=== PATIENT | female | born 1940 | race Caucasian/White ===

== ENCOUNTER 2024-09-10 05:07 | Emergency (ER) | payer MEDICARE, BC, SELFPAY ==
[2024-09-10] VITALS (12 sets, daily range): BP systolic 118–175; BP diastolic 57–99; PULSE 88–124; RESP 18–31; TEMP 36.6–36.9; O2SAT 87–100; BMI 33.9
--- NOTE | 2024-09-10 05:30 | PD.EDRME ---
Rapid Medical Screening Exam RME Arrival date/time: 09/10/24 05:07 Chief Complaint: GI Bleed Time Seen by Provider: 09/10/24 05:30 RME Narrative: 84yo female BIBA from [facility] presents to the ED for complaints of abdominal pain and dark red stools. Patient has a history of aFib and is on Eliquis.
--- NOTE | 2024-09-10 05:31 | EKG_ITS ---
[facility] Test Date: 2024-09-10 Pat Name: LOIS CHRISTENSEN Department: Room: - Gender: Female Director Of Consumer Marketing: : 1940 Requested By: Jarrett Hoffman Order Number: [id number] Reading MD: Jarrett Hoffman Measurements Intervals Dutton Rate: 112 P: UT: QRS: 15 QRSD: 72 T: 87 QT: 303 QTc: 415 Interpretive Statements ATRIAL FIBRILLATION WITH RAPID VENTRICULAR RESPONSE POSSIBLE ANTERIOR MYOCARDIAL INFARCTION , OF INDETERMINATE AGE [30 ms Q WAVE IN V3/V4, OR R < 0.2 mV IN V4] No previous ECG available for comparison /[id number]/S0/[id number].pdf
--- NOTE | 2024-09-10 05:33 | XR_ITS ---
Examination: CT abdomen with intravenous contrast CT pelvis with intravenous contrast 2-D coronal reconstructions 2-D sagittal reconstructions Date and time of exam:September 10, 2024 at 0856 hours INDICATIONS: Generalized abdominal pain and distention today. CTDI: vol (mGy) 19.3 DLP: (mGycm) 1006 Technique: Multiple axial sections of the abdomen and pelvis have been obtained. 64 slice high-resolution scanner used. 3 mm axial sections have been obtained, post intravenous injection 60 cc Isovue-370 2-D sagittal, coronal reconstructions obtained. Low dose protocols were performed. One or more of the following dose reduction techniques were used; automated exposure control, adjustment of the mA and/or KV according to patient size, use of iterative reconstruction technique. Findings: Atelectasis versus pneumonia both lung bases Small bilateral pleural effusions Prominent intrahepatic biliary tract dilatation Absent gallbladder Abnormally enlarged common bile duct 18 mm Spleen is not enlarged Atrophic pancreas No hydronephrosis Heavy abdominal aortic calcification Multiple fluid distended small bowel loops Hernia defect left lateral abdomen, at least 4.5 cm containing dilated small bowel loops Central lower pelvic wall hernia defect, 7.7 cm containing colon and small bowel Contracted urinary bladder around a Escalante catheter Severe osteopenia IMPRESSION: Atelectasis versus pneumonia both bases Abnormal extra hepatic biliary tract dilatation, consider MRCP follow-up to exclude malignant stricture at the ampulla Small bowel obstruction pattern, likely secondary to incarcerated small bowel in a left lateral abdomen hernia defect
--- NOTE | 2024-09-10 05:35 | XR_ITS ---
Examination: AP chest single view Technique one AP portable upright chest single view Exam date and time: September 10, 2024 0559 hours INDICATIONS: Chest abdominal pain today FINDINGS: Suspicious for retrocardiac gastric hernia No significant cardiac enlargement No pulmonary edema Prominent osteopenia IMPRESSION: Recommend lateral chest view follow-up to confirm retrocardiac gastric hernia
[2024-09-10] MEDS: HYDROmorphone INJ 2 MG/ML VIAL 1 MG IVP (06:24)
[2024-09-10 06:25] LABS: Basophils # (Auto) 0.1 Thou/mm3 (0.0-0.2); Basophils % (Auto) 0 % (0-2.5); Eosinophils % (Auto) 0 % (0-10); Hemoglobin 14.6 g/dL (12.0-16.0); Lymphocytes # (Auto) 1.4 Thou/mm3 (1.0-4.8); Lymphocytes % (Auto) 5 % (10-50); Mean Corpuscular Volume 100 fL (80-100); Monocytes # (Auto) 0.9 Thou/mm3 (0.0-0.8); Monocytes % (Auto) 3 % (0-12); Neutrophils % (Auto) 91 % (37-80); Nucleated Red Blood Cell % 0 /100 WBC (0)
[2024-09-10] MEDS: PANTOPRAZOLE INJ 40 MG VIAL 80 MG IVP (06:25)
[2024-09-10] MEDS: ONDANSETRON INJ 2 MG/ML INJ 2 ML 4 MG IV (06:25)
[2024-09-10 06:27] LABS: Hematocrit 44.3 % (36.0-46.0); Immature Granulocytes % (Auto) 1 % (0-0); Immature Granulocytes Auto 0.38 Thou/mm3 (0.00-0.00); Mean Corpuscular Hemoglobin 32.9 pg (25.0-35.0); Neutrophils # (Auto) 27.1 Thou/mm3 (1.8-7.7); Nucleated Red Blood Cell # 0.02 Thou/mm3 (0.00-0.00); Platelet Count 404 Thou/mm3 (140-440); Red Blood Count 4.44 Miln/mm3 (4.00-5.20); White Blood Count 29.9 Thou/mm3 (3.6-11.0)
[2024-09-10] MEDS: SODIUM CHLORIDE 0.9% 1000 ML 1,000 ML 999 ML IV ×2 (06:34→11:59)
[2024-09-10 06:59] LABS: Alanine Aminotransferase 206 U/L (10-49); Albumin, Serum 3.8 gm/dL (3.4-4.8); Albumin/Globulin Ratio 1.5 (1.2-2.2); Alkaline Phosphatase 208 U/L (46-116); Anion Gap 9 (7-16); Aspartate Amino Transferase 498 U/L (0-34); BUN/Creatinine Ratio 23 Ratio (12-20); Bilirubin,Total 1.2 mg/dL (0.3-1.2); Blood Urea Nitrogen 18 mg/dL (9-23); Calcium 9.5 mg/dL (8.3-10.6); Calcium (Corrected) 9.7 mg/dL (8.5-10.1); Carbon Dioxide 27.3 mMol/L (20.0-31.0); Chloride 101 mMol/L (98-107); Creatinine (Component) 0.8 mg/dL (0.6-1.3); Estimated Creatinine Clearance 59.8 mL/min (>60); Globulin 2.6 gm/dL (2.3-3.5); Glucose 160 mg/dL (74-106); Lipase 35 U/L (12-53); Magnesium 2.6 mg/dL (1.6-2.6); Osmolality,Calculated 278 (275-295); Potassium 5.1 mMol/L (3.4-5.1); Procalcitonin 0.12 ng/ml (0.0-0.49); Sodium 137 mMol/L (136-145); Total Protein 6.4 gm/dL (5.7-8.2); eGFR > 60 See Note
--- NOTE | 2024-09-10 07:12 | XR_ITS ---
Examination: Abdomen sonogram, Limited Date and time of exam: September 10, 2024 0728 hrs. Indications: Onset right upper abdominal pain today Technique: Real-time jones scale transabdominal sonographic images of the upper abdomen obtained. Findings: Gallbladder not visualized Marked abnormal enlargement common bile duct 1.7 cm Pancreatic head 2.8 cm Liver 14.2 cm smooth contour no focal liver lesions Normal hepatopedal portal venous flow Patent IVC Impression: Markedly abnormally enlarged common bile duct, 17 mm consistent, consider MRCP follow-up to exclude malignant stricture distal common bile duct
[2024-09-10 07:17] LABS: Lactate (Lactic Acid) 1.7 mMol/L (0.4-2.0)
--- NOTE | 2024-09-10 07:38 | PC.NURSE ---
Per previous nurse, pt came with patent gallardo, so she did not think she needed to place a new one. Fluids infusing currently, gallardo clamped to obtain urine sample. Pt slightly tachy on tele, US at bedside. Denies any pain or discomfort at this time. Will continue w/POC.
--- NOTE | 2024-09-10 08:13 | PC.NURSE ---
went to collect urine from catheter, changed pt as dark blood was noted in brief, turned pt to get temp as well as COPS was unable to obtain a temp orally or axillary. Blood was reported to provider. This RN also noted that a blister was forming to left upper thigh from catheter, bandage placed to prevent further irritation. Daughter now at bedside.
[2024-09-10 08:25] LABS: Collection Type, Urine Catheter; Squamous Epithelial Cell,Urine 0 /hpf (0-5)
[2024-09-10 08:27] LABS: INR 1.3 (0.9-1.3); Partial Thromboplastin Time 28.2 Seconds (22.0-36.0); Prothrombin Time 13.6 Seconds (9.0-12.2)
[2024-09-10 08:50] LABS: Hyaline Casts,Urine 12 /hpf (0-1); RBC,Urine 1236 /hpf (0-3); WBC,Urine 24 /hpf (0-5)
[2024-09-10 09:03] LABS: Bilirubin,Urine 1+ (Negative); Blood,Urine 3+ (Negative); Color,Urine Orange (Lt Yel-Yel); Glucose, Urine Negative (Negative); Ketones,Urine Trace (Negative); Leukocyte Esterase,Urine Positive (Negative); Nitrite,Urine Negative (Negative); PH,Urine 5.5 (5.0-7.0); Protein,Urine 2+ (Neg - Trace); Urobilinogen,Urine Negative mg/dL (0.0-1.0)
[2024-09-10 09:06] LABS: Clarity,Urine Turbid (Clear/Hazy)
--- NOTE | 2024-09-10 10:15 | EDNOTE_ITS ---
ED Abdominal Pain RME/HPI General Chief Complaint: GI Bleed Stated complaint: GI BLEED Time seen by provider: 09/10/24 05:30 Arrival date/time: 09/10/24 05:07 RME / HPI RME / HPI narrative: 84yo female CHARLEE from [facility] presents to the ED for complaints of abdominal pain and dark red stools. Patient has a history of aFib and is on Eliquis. DR. HENLEY MAIN ED EVALUATION 84 year old female with history of AFib on Eliquis, hypertension, hyperlipidemia, CATHY, GERD presents to the ED BIBA from [facility] for evaluation of abdominal pain today. Per medics, [place] staff reported blood in stool. While in the ED, patient does not know how long she has had blood in stool. Patient additionally complains of worsening abdominal pain. States she has had abdominal pain for several months and is unable to specify when it began worsening. Denies fevers, chills, chest pain, cough, vomiting. Related Data Allergies Allergy/AdvReac Type Severity Reaction Status Date / Time hydrochlorothiazide Allergy Verified 09/10/24 05:35 Sulfa (Sulfonamide Allergy Verified 09/10/24 05:35 Antibiotics) Review of Systems Review of Systems Narrative Review of Systems: Gen: No fever, no chills, no weight loss EYES: No discharge, no visual changes, no pain HEENT: No ear pain, no congestion, no sore throat PULM: no shortness of breath, no cough, no congestion CV: No chest pain, no dyspnea on exertion, no palpitations, no chest tightness GI: No nausea, no vomiting, no diarrhea, + pain, +blood in stool per NH staff, no constipation : No frequency, no urgency,? no dysuria Musc/skel: No joint pain, no back pain Skin: No rash, no ecchymosis, no lesions Neuro: No weakness, no headache Past Medical History Past Medical History CARDIAC: Positive Cardiac Disorders RESPIRATORY: Negative Asthma GENITOURINARY: Negative Renal Disease ENDOCRINE: Negative Diabetes Mellitus Type 2 HEMATOLOGIC: Negative Sickle Cell Disease Social History SMOKING STATUS: Former smoker ED Exam Narrative Physical exam: GENERAL APPEARANCE: Awake, no obvious distress, nontoxic appearing HEENT: NC, AT. MMM. EOMI, clear conjunctiva, oropharynx clear. NECK: Supple without lymphadenopathy. No stiffness or restricted ROM. HEART: Normal rate and regular rhythm, normal S1/S1, no m/r/g LUNGS: CTAB, moving air well. No crackles or wheezes are heard. ABDOMEN: Soft, diffuse tenderness, no rebound, no guarding, distended, old surgical scars which the patient cannot account for what they are, surgical hernias noted that are small and all reducible, good bowel sounds heard. BACK: No midline C/T/L spine pain or deformity, no obvious deformity. EXTREMITIES: Without cyanosis, clubbing or edema. MUSCULOSKELETAL: FROM of all major joints, no chest tenderness NEUROLOGICAL: Grossly nonfocal. Alert and oriented, moving all 4 extremities. CN not formally tested but appear grossly intact. Skin: Warm and dry without any rash. Course Quality Measures none Orders Category Date Time Status CT Screening NOW Care 09/10/24 05:33 Completed Export Freight Specialist STAT Care 09/10/24 05:31 Completed Consult 7Th Grade Social Studies Teacher NOW Care 09/10/24 14:24 Completed Continuous Pulse Oximetry STAT Care 09/10/24 05:31 Completed EKG (ED ONLY) *Do not use* NOW Care 09/10/24 05:31 Completed Insert IV STAT Care 09/10/24 05:31 Completed Insert NG / OG tube NOW Care 09/10/24 13:08 Completed Intake and Output Routine Care 09/10/24 05:31 Ordered MRI Screening NOW Care 09/10/24 12:20 Completed NG / OG Tube to LIS NOW Care 09/10/24 13:08 Completed NPO STAT Care 09/10/24 05:31 Completed Urinary Catheter STAT Care 09/10/24 05:[address] abdomen pelvis w con Stat Exams 09/10/24 05:33 Completed EKG (ED Only) Stat Exams 09/10/24 05:31 Draft US gall bladder Stat Exams 09/10/24 07:12 Completed XR chest 1V portable Stat Exams 09/10/24 05:35 Completed CBC Stat Lab 09/10/24 06:18 Completed Comprehensive Metabolic Panel Stat Lab 09/10/24 06:18 Completed Hemoglobin and Hematocrit Stat Lab 09/10/24 11:55 Completed Lactate (Lactic Acid) Stat Lab 09/10/24 07:01 Completed Lipase Stat Lab 09/10/24 06:18 Completed Magnesium Stat Lab 09/10/24 06:18 Completed Partial Thromboplastin Time Stat Lab 09/10/24 07:01 Completed Procalcitonin Stat Lab 09/10/24 06:18 Completed Prothrombin Time with INR Stat Lab 09/10/24 07:01 Completed Type and Screen Stat Lab 09/10/24 06:18 Completed Urinalysis Stat Lab 09/10/24 08:10 Completed HYDROmorphone INJ [Dilaudid Inj] Med 09/10/24 05:32 Discontinued 1 mg IVP X1 ONE Ondansetron Inj [Zofran Inj] Med 09/10/24 05:32 Discontinued 4 mg IV X1 ONE Pantoprazole Inj [Protonix Inj] Med 09/10/24 05:31 Discontinued 80 mg IVP X1 ONE Sodium Chloride 0.9% 1000 ml [Ns] 1,000 ml Med 09/10/24 05:31 Discontinued IV 999 mls/hr Sodium Chloride 0.9% 1000 ml [Ns] 1,000 ml Med 09/10/24 11:44 Discontinued IV 999 mls/hr Reevaluation(s) Reevaluation #1: I spoke with patients daughter at bedside. We reviewed all the results, analysis, and treatment plans. Advised if the findings are malignant the patient would need intervention, surgical procedures or aggressive cancer therapy. Daughter states the patient typically does not want to see doctors and does not feel she would want any further aggressive interventions. We discussed palliative and hospice care and daughter states palliative care would be in her best interest. application services manager was consulted. Daughter and I cancelled have agreed to cancel the MRCP. Daughter additionally reports the patient was only admitted to [facility] 3 days ago and was living independently prior to that. States patient has had multiple admission to [facility]. Reevaluation #2: Daughter and patient have both agreed to return to [facility] with com fort measures. Vital Signs Vital signs: Vital Signs Pulse Rate 104 H 09/10/24 05:40 Respiratory Rate 31 H 09/10/24 05:40 Blood Pressure 118/57 L 09/10/24 05:40 Pulse Oximetry (%) 87 L 09/10/24 05:40 Pulse ox is 98% on 2L nasal cannula which is adequate. Abdominal Pain MDM MDM Narrative MDM Narrative:: [place], am scribing for and in the presence of Dr. Henley. Patient data External records reviewed:: EMS form and Long Term records (I reviewed txfer ppw from [facility]. I reviewed medical history and medication list. ) Clinical information provided by:: patient Social determinants that could affect healthcare access:: housing ([facility] resident) Patient has the following chronic illnesses:: AFib on Eliquis, hypertension, hyperlipidemia, CATHY, GERD How is presenting disease/condition affected by chronic disease/condition?: exacerbated by Evaluation data The following diagnostics were reviewed and interpreted by me:: lab results, radiology exam(s) and EKG tracing(s) (Atrial fibrillation with RVR, HR 112, no STEMI ) Lab and/or radiology exams considered but not ordered:: None Interpretation Summary: Ordering Physician: Jarrett Pemberton MD Date of Service: 09/10/24 Procedure(s): CT abdomen pelvis w con Accession Number(s): [id number] cc: Ja Bartlett MD; Ankush Cheney MD; Jarrett Pemberton MD~ Examination: CT abdomen with intravenous contrast CT pelvis with intravenous contrast 2-D coronal reconstructions 2-D sagittal reconstructions Date and time of exam:September 10, 2024 at 0856 hours INDICATIONS: Generalized abdominal pain and distention today. CTDI: vol (mGy) 19.3 DLP: (mGycm) 1006 Technique: Multiple axial sections of the abdomen and pelvis have been obtained. 64 slice high-resolution scanner used. 3 mm axial sections have been obtained, post intravenous injection 60 cc Isovue-370 2-D sagittal, coronal reconstructions obtained. Low dose protocols were performed. One or more of the following dose reduction techniques were used; automated exposure control, adjustment of the mA and/or KV according to patient size, use of iterative reconstruction technique. Findings: Atelectasis versus pneumonia both lung bases Small bilateral pleural effusions Prominent intrahepatic biliary tract dilatation Absent gallbladder Abnormally enlarged common bile duct 18 mm Spleen is not enlarged Atrophic pancreas No hydronephrosis Heavy abdominal aortic calcification Multiple fluid distended small bowel loops Hernia defect left lateral abdomen, at least 4.5 cm containing dilated small bowel loops Central lower pelvic wall hernia defect, 7.7 cm containing colon and small bowel Contracted urinary bladder around a Escalante catheter Severe osteopenia IMPRESSION: Atelectasis versus pneumonia both bases Abnormal extra hepatic biliary tract dilatation, consider MRCP follow-up to exclude malignant stricture at the ampulla Small bowel obstruction pattern, likely secondary to incarcerated small bowel in a left lateral abdomen hernia defect Dictated By:Ankush Cheney MD Signed By:<Electronically signed by Ankush Cheney MD in OV>09/10/24 0952 Ordering Physician: Jarrett Pemberton MD Date of Service: 09/10/24 Procedure(s): XR chest 1V portable Accession Number(s): [id number] cc: Ja Bartlett MD; Ankush Cheney MD; Jarrett Pemberton MD~ Examination: AP chest single view Technique one AP portable upright chest single view Exam date and time: September 10, 2024 0559 hours INDICATIONS: Chest abdominal pain today FINDINGS: Suspicious for retrocardiac gastric hernia No significant cardiac enlargement No pulmonary edema Prominent osteopenia IMPRESSION: Recommend lateral chest view follow-up to confirm retrocardiac gastric hernia Dictated By:Ankush Cheney MD Signed By:<Electronically signed by Ankush Cheney MD in OV>09/10/24 0859 Ordering Physician: Kartik Henley MD Date of Service: 09/10/24 Procedure(s): US gall bladder Accession Number(s): [id number] cc: Ja Bartlett MD; Kartik Henley MD; Ankush Cheney MD~ Examination: Abdomen sonogram, Limited Date and time of exam: September 10, 2024 0728 hrs. Indications: Onset right upper abdominal pain today Technique: Real-time jones scale transabdominal sonographic images of the upper abdomen obtained. Findings: Gallbladder not visualized Marked abnormal enlargement common bile duct 1.7 cm Pancreatic head 2.8 cm Liver 14.2 cm smooth contour no focal liver lesions Normal hepatopedal portal venous flow Patent IVC Impression: Markedly abnormally enlarged common bile duct, 17 mm consistent, consider MRCP follow-up to exclude malignant stricture distal common bile duct Dictated By:Ankush Cheney MD Signed By:<Electronically signed by Ankush Cheney MD in OV>09/10/24 0746 Medications / Prescriptions Medications or Prescriptions considered but not ordered:: None Medication administrations:: Medication Administration History Discontinued Medications Hydromorphone HCl (Hydromorphone Inj 2 Mg/Ml Vial) 1 mg IVP X1 ONE Stop: 09/10/24 05:33 Last Admin: 09/10/24 06:24 Dose: 1 mg Documented By: LIBAN Sodium Chloride (Ns) 1,000 mls @ 999 mls/hr IV .Q1H1M ONE Stop: 09/10/24 06:31 Last Infusion: 09/10/24 07:35 Dose: Infused Documented By: Admin: 09/10/24 06:34 Dose: 999 mls/hr Documented By: LIBAN Sodium Chloride (Ns) 1,000 mls @ 999 mls/hr IV .Q1H1M ONE Stop: 09/10/24 12:44 Last Infusion: 09/10/24 13:00 Dose: Infused Documented By: Admin: 09/10/24 11:59 Dose: 999 mls/hr Documented By: PURNIMA Ondansetron HCl (Ondansetron Inj 2 Mg/Ml Inj 2 Ml) 4 mg IV X1 ONE; Protocol Stop: 09/10/24 05:33 Last Admin: 09/10/24 06:25 Dose: 4 mg Documented By: LIBAN Pantoprazole Sodium (Pantoprazole Inj 40 Mg Vial) 80 mg IVP X1 ONE Stop: 09/10/24 05:32 Last Admin: 09/10/24 06:25 Dose: 80 mg Documented By: LIBAN See above Consultations Consultation(s) initiated? (list below): Yes Consultation #1 (Physician, Specialty, Details): I spoke with Surgeon Dr. Montes, recommends NG tube and states bowel obstruction is nonsurgical. Advised if there is malignancy will require an MRCP. Time: 13:30 Consultation #2 (Physician, Specialty, Details): I spoke with GI Dr. Robledo. Discussed patients PMHx, HPI, ED course, exam findings, labs, and radiology results. Recommends an MRCP adding there is not ERCP capability this week if indicated. Time: 14:00 Diagnosis Differential diagnosis abdominal pain: abdominal pain, constipation, diverticulitis and gastroenteritis Most likely diagnosis given after review of the tests above:: Lower GI hemorrhage Complete obstruction of small intenstine Hernia Dilated intrahepatic bile duct Abdominal pain Encounter for hospice care Admission Indicated Admission indicated?: not indicated Admission Request Was there a request for admission?: No Disposition Plan Disposition Plan: Discharge Discharge Attestation Discharge Attestation: The patient and all family members were given an opportunity to ask questions and understood the discharge instructions. Discharge instructions specifically effects, indications for sooner follow up or return to the emergency department, and the expected course of current diagnosis. Patient condition: Stable Discharge Plan Plan Patient Disposition: HOME (Self Care) Prescriptions/Referrals Referrals: Ja Bartlett MD [Primary Care Provider] - In 1 week Problem List Clinical Impression: Lower gastrointestinal hemorrhage, Complete obstruction of small intestine, Hernia, Dilated intrahepatic bile duct, Abdominal pain, Encounter for hospice care Patient/Caregiver Discharge Instructions Education Materials: Bleeding Gastrointestinal, What Is Palliative Care?, ED Hernia (Adult), ED Pain, Acute, Uncertain Cause Additional Instructions: Follow-up with your hospice providers at [facility]. You can follow-up with your primary care doctor as needed. Feel free return to the emergency department for any new or concerning issues. Print Language: Guinean Stand Alone Forms: Lana Award Info., Patient Portal Info Letter
[2024-09-10 12:08] LABS: Hematocrit 39.2 % (36.0-46.0)
--- NOTE | 2024-09-10 13:48 | PC.NURSE ---
DAUGHTER DOES NOT WANT NG TUBE STATES I WOULD LIKE TO LET THINGS PLAY OUT
--- NOTE | 2024-09-10 15:20 | PC.CC ---
Addendum entered by Belkis Perez 09/10/24 15:52: ASW, arranged transportation back to [place] with [facility] signed by letter of credit document examiner Alejo. ASW provided update to [facility]. ASW provided update of transportation to daughter Jojo from [facility]. Original Note: ASW, Belkis was consulted by Dr. Montoya regarding possible hospice referral for patient. ASW made face to face contact with patient's daughter who is at bedside, Teena Cline. ASW introduced self, role, and reason for visit. Patient's daughter reports she would like comfort measures to be provided for the patient. ASW made contact with Roxann at [facility] as this is where the patient is residing. Roxann reports that they can setup comfort measures for the patient at the facility. Patient's daughter spoke to Roxann and they have come to the agreement that patient will return back to [facility] and comfort measures will be established at the facility.
== END 2024-09-10 16:43 | disposition home or self-care (01) ==
PROVIDERS: Emergency Medicine; Emergency Provider Emergency Medicine; PCP Hospitalist
DX: K92.1 Melena (principal); K56.601 Complete intestinal obstruction, unspecified as to cause; K46.9 Unspecified abdominal hernia without obstruction or gangrene; Z51.5 Encounter for palliative care; I48.91 Unspecified atrial fibrillation; E78.5 Hyperlipidemia, unspecified; I10 Essential (primary) hypertension; K21.9 Gastro-esophageal reflux disease without esophagitis
CPT/HCPCS: 51702; 36415; 71045; 74177; 76705; 80053; 81001; 83605; 83690; 83735; 84145; 85014; 85018; 85025; 85610; 85730; 86850; 86900; 86901; 93005; 96361; 96374; 96375; 99285; A4649; J2405; J2470; J3490; J7030; Q9967